=== PATIENT | female | born 1945 | race Caucasian/White ===

== ENCOUNTER 2018-07-04 18:06 | Inpatient (IN) | payer BC, MEDICARE ==
[~2018-07-04] VITALS: Ht 149.9 cm; Wt 65.9 kg
[~2018-07-04 18:06] MED LIST: ALPR0.254 PO; DIPHEN PO; OXYC5CAP2 PO; TRAZ150T62 PO; [UNRECOGNIZED DRUG - OTHER] PO
[2018-07-04] MEDS ORDERED: ALBUTEROL/IPRATROPIUM 2.5MG/0.5MG, 3 ML NPPB ONE (18:30)
[2018-07-04 18:43] LABS: BASOPHILS # (AUTO) 0.02 x10^3/uL (0-0.1); BASOPHILS % (AUTO) 0 % (0-1); EOSINOPHILS % (AUTO) 5 % (1-7); LYMPHOCYTES # (AUTO) 0.66 x10^3/uL (1-3.4); LYMPHOCYTES % (AUTO) 10 % (22-44); MD NO; MEAN CORPUSCULAR HGB CONC 32.4 g/dL (32.4-35.8); MEAN CORPUSCULAR VOLUME 80.3 fL (80-100); MEAN PLATELET VOLUME 8.1 fL (7.4-10.4); MONOCYTES # (AUTO) 0.67 x10^3/uL (0.2-0.8); MONOCYTES % (AUTO) 10 % (2-9); NEUTROPHILS # (AUTO) 4.83 x10^3/uL (1.8-6.8); NEUTROPHILS % (AUTO) 75 % (42-75); PLATELET COUNT 296 x10^3/uL (130-400); RED BLOOD COUNT 3.76 x10^6/uL (3.82-5.3); RED CELL DISTRIBUTION WIDTH 16.2 % (9.6-15.2)
[2018-07-04] MEDS ORDERED: HYDR25TA6 PO (18:48)
[2018-07-04] MEDS ORDERED: TIOT18CA INH (18:48)
[2018-07-04] MEDS ORDERED: FLUT12AE INH (18:48)
[2018-07-04] MEDS ORDERED: DOXE50CA PO (18:49)
[2018-07-04] MEDS ORDERED: ALBU8.5H8 INH (18:49)
[2018-07-04 18:50] LABS: ALBUMIN 2.5 g/dL (3.4-5.0); ANION GAP 10 mmol/L (5-15); CALCIUM 8.6 mg/dL (8.5-10.1); CHLORIDE 104 mmol/L (98-107); CREATININE 0.82 mg/dL (0.55-1.02)
[2018-07-04] MEDS ORDERED: IBUP200T64 PO (18:50)
[2018-07-04 18:54] LABS: TROPONIN I < 0.015 ng/mL (0.000-0.045)
[2018-07-04] MEDS ORDERED: LEVO500T47 PO (19:00)
[2018-07-04] MEDS ORDERED: SODIUM CHLORIDE 0.9% 1,000 ML IV SCH (21:04)
[2018-07-04] MEDS ORDERED: POLYETHYLENE GLYCOL 17 GM PACKET PO PRN (21:30)
[2018-07-04] MEDS ORDERED: ONDANSETRON ODT 4 MG PO PRN (21:30)
[2018-07-04] MEDS ORDERED: ONDANSETRON 2MG/ML, 2ML IVPush PRN (21:30)
[2018-07-04] MEDS ORDERED: GUAIFENESIN/DM 200-20MG, 10ML UDC PO PRN (21:30)
[2018-07-04] MEDS ORDERED: ACETAMINOPHEN 325 MG TABLET PO PRN (21:30)
[2018-07-04] MEDS ORDERED: ALBUTEROL SULFATE 2.5 MG/3 ML NPPB PRN (22:00)
[2018-07-04] MEDS ORDERED: IPRATROPIUM 0.5 MG/2.5 ML INHA NPPB SCH (22:00)
[2018-07-04 22:45] VITALS: BP 113/63
[2018-07-04] MEDS: methylPREDNISolone SOD SUCC 125 MG/2 ML IVPush SCH (22:47)
[2018-07-04] MEDS: ENOXAPARIN 40 MG/0.4 ML SQ SCH (22:47)
[2018-07-05] MEDS: DOXEPIN 25 MG CAPSULE PO SCH ×2 (00:09→20:50)
[2018-07-05 02:27] VITALS: BP 117/62
[2018-07-05] MEDS: methylPREDNISolone SOD SUCC 125 MG/2 ML IVPush SCH ×3 (06:17→20:51)
[2018-07-05] MEDS: ALBUTEROL/IPRATROPIUM 2.5MG/0.5MG, 3 ML NPPB SCH ×4 (06:50→19:43)
[2018-07-05] MEDS ORDERED: AZITHROMYCIN 500 MG in DEXTROSE 5% 250 ML IV SCH (08:00)
[2018-07-05 08:03] VITALS: BP 119/63
[2018-07-05] MEDS: FLUTICASONE FUROATE 100MCG/INH INH SCH (10:47)
[2018-07-05 13:55] VITALS: BP 132/66
[2018-07-05 19:20] VITALS: BP 143/70
[2018-07-05] MEDS: ENOXAPARIN 40 MG/0.4 ML SQ SCH (20:50)
[2018-07-05] MEDS ORDERED: DOXEPIN 25 MG CAPSULE PO SCH (21:00)
[2018-07-06 00:47] VITALS: BP 130/90
[2018-07-06] MEDS: methylPREDNISolone SOD SUCC 125 MG/2 ML IVPush SCH ×3 (03:01→14:30)
[2018-07-06] MEDS: ALBUTEROL/IPRATROPIUM 2.5MG/0.5MG, 3 ML NPPB SCH ×4 (07:20→19:56)
[2018-07-06] MEDS: AZITHROMYCIN 500 MG in SODIUM CHLORIDE 0.9% 250 ML IV SCH (07:46)
[2018-07-06] MEDS: FLUTICASONE FUROATE 100MCG/INH INH SCH (07:47)
[2018-07-06 07:59] VITALS: BP 121/83
[2018-07-06] MEDS: SODIUM CHLORIDE NASAL SPRAY 45ML BOTTLE NAS PRN (11:37)
[2018-07-06 13:35] VITALS: BP 124/60
[2018-07-06] MEDS ORDERED: AZIT500T PO (18:11)
[2018-07-06] MEDS ORDERED: PRED10TA PO (18:11)
[2018-07-06] MEDS ORDERED: IPRA3AMP30 INH (18:11)
[2018-07-06] MEDS ORDERED: FLUT1AER INH (18:11)
[2018-07-06 19:37] VITALS: BP 150/71
[2018-07-06] MEDS: DOXEPIN 25 MG CAPSULE PO SCH (20:04)
[2018-07-06] MEDS: ENOXAPARIN 40 MG/0.4 ML SQ SCH (20:04)
[2018-07-06] MEDS: methylPREDNISolone SOD SUCC 40 MG/ML IVPush SCH (20:04)
[2018-07-07 01:01] VITALS: BP 137/68
[2018-07-07] MEDS: methylPREDNISolone SOD SUCC 40 MG/ML IVPush SCH ×2 (02:42→08:11)
[2018-07-07 06:50] VITALS: BP 147/62
[2018-07-07] MEDS: ALBUTEROL/IPRATROPIUM 2.5MG/0.5MG, 3 ML NPPB SCH (07:01)
[2018-07-07] MEDS ORDERED: OMEP-110 PO (07:56)
[2018-07-07] MEDS ORDERED: CALCIUM CARBONATE 500 MG TAB.CHEW PO PRN (08:00)
[2018-07-07] MEDS: AZITHROMYCIN 500 MG in SODIUM CHLORIDE 0.9% 250 ML IV SCH (08:10)
[2018-07-07] MEDS: FLUTICASONE FUROATE 100MCG/INH INH SCH (08:10)
[2018-07-07] MEDS: SODIUM CHLORIDE NASAL SPRAY 45ML BOTTLE NAS PRN (08:11)
== END 2018-07-07 12:35 | disposition home or self-care (01) | DRG 189 ==
LOC: ED 20:58 → EDIP 21:00 → SUATTDRO 21:03 → 3NW 21:31
PROVIDERS: ADMIT Hospitalist; ATTEND Internal Medicine
DX: J96.21 Acute and chronic respiratory failure with hypoxia (principal); E43 Unspecified severe protein-calorie malnutrition; J44.1 Chronic obstructive pulmonary disease with (acute) exacerbation; Z87.891 Personal history of nicotine dependence; Z87.01 Personal history of pneumonia (recurrent); Z99.81 Dependence on supplemental oxygen; Z85.3 Personal history of malignant neoplasm of breast; Z90.10 Acquired absence of unspecified breast and nipple; Z90.5 Acquired absence of kidney; Z68.29 Body mass index [BMI] 29.0-29.9, adult
CPT/HCPCS: 36415; 84145; 99285; J7613; J7620; 71046; 80048; 82040; 84484; 85025; 93005; 94640; G0378; J0456; J1650; J7060; Q0162; J2920; J2930; J7030; J7050; J7512